=== PATIENT | male | born 1975 | race Caucasian/White ===

== ENCOUNTER 2023-06-10 06:51 | Day surgery (SDC) | payer MEDICAID, OTHER ==
[~2023-06-10] VITALS: Ht 180.3 cm; Wt 112.0 kg
[2023-06-10 07:37] VITALS: O2SAT 95
[2023-06-10] MEDS ORDERED: SIMETHICONE 40 MG/0.6 ML ML ONE (08:27)
[2023-06-10] MEDS ORDERED: MEPERIDINE 100 MG INJ. 100 MG/ML VIAL ONE (08:28)
[2023-06-10] MEDS ORDERED: MIDAZOLAM HCL 5 MG/5 ML VIAL ONE (08:28)
[2023-06-10 13:03] VITALS: BP_SYST 156; PULSE 91; RESP 25
== END 2023-06-10 09:42 | disposition home or self-care (01) ==
LOC: SDS 06:51 → SMU 06:53 → SDS 09:42
PROVIDERS: ATTEND Internal Medicine Gastroenterology
DX: K59.09 Other constipation (principal); D12.0 Benign neoplasm of cecum; E11.9 Type 2 diabetes mellitus without complications; E78.5 Hyperlipidemia, unspecified; M19.90 Unspecified osteoarthritis, unspecified site; R14.0 Abdominal distension (gaseous); K57.30 Diverticulosis of large intestine without perforation or abscess without bleeding; K64.8 Other hemorrhoids; Z98.890 Other specified postprocedural states; Z87.891 Personal history of nicotine dependence; Z79.84 Long term (current) use of oral hypoglycemic drugs; Z79.899 Other long term (current) drug therapy
CPT/HCPCS: 45380; 82948; 88305; 99152; G0378; J2250; J2175